=== PATIENT | female | born 1975 | race Two or more races ===

== ENCOUNTER 2022-04-18 10:44 | Inpatient (IN) | payer OTHER ==
[~2022-04-18] VITALS: Ht 167.6 cm; Wt 80.7 kg
--- NOTE | 2022-04-18 11:10 | NUR ---
BIBS c/o RLQ pain since yesterday 07/18 pain scale. AMBULATORY, PLACED ON BED, AAOX4, IN PAIN 07/18.
--- NOTE | 2022-04-18 11:15 | NUR ---
BLOOD DRAWN AND SENT TO LAB
--- NOTE | 2022-04-18 11:20 | NUR ---
PATIENT TAKEN TO CT FOR ABDO AND PELVIS
[2022-04-18 11:26] LABS: BASOPHILS # (AUTO) 0.1 K/uL (0.0-0.2); BASOPHILS % (AUTO) 0.6 % (0.0-2.0); EOSINOPHILS % (AUTO) 0.5 % (0.0-6.0); HEMATOCRIT 40 % (33-45); HEMOGLOBIN 13.5 g/dL (11.5-14.8); LYMPHOCYTES # (AUTO) 1.8 K/uL (0.8-4.8); LYMPHOCYTES % (AUTO) 15.5 % (20.0-44.0); MEAN CORPUSCULAR HGB CONC 34 g/dl (31.0-36.0); MEAN CORPUSCULAR VOLUME 92 fL (82-100); MONOCYTES # (AUTO) 0.8 K/uL (0.1-1.30); MONOCYTES % (AUTO) 6.7 % (2.0-12.0); NEUTROPHILS # (AUTO) 8.8 K/uL (1.8-8.9); NEUTROPHILS % (AUTO) 76.7 % (43.0-81.0); PLATELET COUNT (AUTO) 140 K/uL (150-450); RED BLOOD CELL COUNT(AUTO) 4.32 MIL/uL (4.0-5.2); WHITE BLOOD COUNT (AUTO) 11.5 K/uL (4.3-11.0)
[2022-04-18 11:42] LABS: BILIRUBIN,URINE NEGATIVE (NEGATIVE); COLOR,URINE YELLOW (YELLOW); LEUKOCYTE ESTERASE ,URINE NEGATIVE (NEGATIVE); NITRITE, URINE NEGATIVE (NEGATIVE); PH,URINE 6.5 (5.0-8.0); PROTEIN,URINE NEGATIVE (NEGATIVE); UGLUCOSE NEGATIVE (NEGATIVE); UROBILINOGEN,URINE 0.2 EU/dL (0.2)
[2022-04-18 11:50] LABS: ALANINE AMINOTRANSFERASE 22 U/L (12-78); ALBUMIN 4.4 g/dL (3.4-5.0); ALKALINE PHOSPHATASE 87 U/L (46-116); ASPARTATE AMINOTRANSFERASE 15 U/L (15-37); BILIRUBIN,DIRECT 0.2 mg/dL (0.0-0.2); BILIRUBIN,TOTAL 0.8 mg/dL (0.2-1.0); CALCIUM, SERUM 8.9 mg/dL (8.5-10.1); CARBON DIOXIDE 30 mmol/L (21-32); CHLORIDE 100 mmol/L (98-107); CREATININE 0.8 mg/dL (0.6-1.3); GLUCOSE 129 mg/dL (74-106); LIPASE 78 U/L (73-393); POTASSIUM 4.1 mmol/L (3.5-5.1); SODIUM SERUM 138 mmol/L (136-145); TOTAL PROTEIN, SERUM 8.5 g/dL (6.4-8.2); UREA NITROGEN, BLOOD 8 mg/dL (7-18)
[2022-04-18 11:56] LABS: BACTERIA,URINE None seen /HPF (None Seen); RBC,URINE 0-2 /HPF (0-2); SQUAMOUS EPITHELIAL CELL,UR Few /HPF (None Seen); WBC,URINE 0-2 /HPF (0-3)
[2022-04-18] MEDS ORDERED: ATOR10TA PO (12:35)
[2022-04-18] MEDS ORDERED: LISI-768 PO (12:35)
[2022-04-18] MEDS ORDERED: METF-440 MT (12:35)
[2022-04-18] MEDS ORDERED: PIPERACILLIN /TAZOBACTAM 2.25 G in IV D5W 50 ML IV ONE (13:00)
[2022-04-18] MEDS ORDERED: ZOLPIDEM TARTRATE 5 MG TABLET PO PRN (14:00)
[2022-04-18] MEDS ORDERED: ACETAMINOPHEN 325 MG TABLET PO PRN (14:00)
[2022-04-18] MEDS ORDERED: DEXTROSE 50%-WATER 50 ML DISP.SYRIN IV PRN (14:00)
[2022-04-18] MEDS ORDERED: ONDANSETRON HCL/PF 4 MG/2 ML VIAL IVP PRN (14:00)
[2022-04-18] MEDS ORDERED: *INSULIN REGULAR(HUMULIN R)HUM 100 UNIT/ML VIAL SQ PRN (14:00)
[2022-04-18] MEDS ORDERED: IV NS 0.9% 1,000 ML IV PRN (14:00)
[2022-04-18] MEDS ORDERED: INSULIN REGULAR, HUMAN 100 UNIT/ML 3 ML VIAL SQ PRN (14:00)
[2022-04-18] MEDS ORDERED: MAG HYDROX/AL HYDROX/SIMETH 30 ML UDC PO PRN (14:00)
[2022-04-18] MEDS ORDERED: Z GUARD REMEDY 4 OZ OINT TP PRN (14:00)
[2022-04-18] MEDS ORDERED: MAGNESIUM HYDROXIDE 30 ML UDC PO PRN (14:00)
--- NOTE | 2022-04-18 14:08 | NUR ---
Renetta anthony in [place] - 04/18/22 at 1412 by WILL covid antigen swab done and sent to the lab
--- NOTE | 2022-04-18 15:09 | NUR ---
ROOM 328-2
--- NOTE | 2022-04-18 15:22 | NUR ---
REPORT GIVEN TO NURSE CROUCH FOR DEMETRI
[2022-04-18] MEDS ORDERED: PIPERACILLIN /TAZOBACTAM 3.375 G in IV D5W 100 ML IV SCH (15:30)
[2022-04-18] MEDS ORDERED: HYDROMORPHONE 1 MG/1 ML DISP.SYRIN IV PRN (15:30)
[2022-04-18 16:00] VITALS: BP 130/79
--- NOTE | 2022-04-18 16:05 | NUR ---
ENGINEERING LAB TECHNICIAN NOTES ADMITTED THIS 46 Y/O FEMALE PATIENT FROM ER @1550, TRANSPORTED VIA GURNEY. PATIENT IS AWAKE, ALERT AND ORIENTED X4, VERBALLY RESPONSIVE, NO SIGNS OF ACUTE DISTRESS NOTED. ON ROOM AIR, TOLERATING WELL. NO SOB NOTED, BREATHING EVEN AND UNLABORED. WITH C/O RIGHT ABDOMINAL PAIN. CURRENTLY ON NPO. PATIENT NOTED WITH IV ACCESS ON RIGHT ANTECUBITAL AREA #20G, INTACT AND PATENT, FLUSHES WELL. ORIENTED PATIENT TO ROOM. SAFETY PRECAUTIONS OBSERVED. BED IN LOWEST AND LOCKED POSITION, SIDE RAILS UP X2, CALL LIGHT PLACED WITHIN EASY REACH, WILL CONTINUE TO MONITOR PATIENT.
--- NOTE | 2022-04-18 16:20 | NUR ---
RN NOTES PER CHARGE NURSE GILMAR, PATIENT WILL BE HAVING SURGERY TODAY FOR LAP APPENDECTOMY BY DR. SWIFT @8440.
[2022-04-18] MEDS ORDERED: ANESTHESIA TRAY IN PYXIS 1 EA TRAY MC ONE (16:38)
[2022-04-18] MEDS ORDERED: BUPIVACAINE MPF W/EPI 0.25% 30 ML VIAL ONE (16:39)
--- NOTE | 2022-04-18 16:40 | NUR ---
RN NOTES BROUGHT PATIENT TO O.R. VIA BED FOR LAP APPENDECTOMY.
[2022-04-18] MEDS ORDERED: MIDAZOLAM HCL 2 MG/2ML VIAL ONE (17:00)
[2022-04-18] MEDS ORDERED: HYDROMORPHONE INJ 2 MG/ML DISP.SYRIN ONE (17:00)
[2022-04-18] MEDS ORDERED: ROCURONIUM BROMIDE 50 MG/5 ML ONE (17:00)
[2022-04-18] MEDS ORDERED: PIPERACILLIN /TAZOBACTAM 3.375 G in IV D5W 50 ML IV SCH (18:00)
[2022-04-18] MEDS ORDERED: BACITRACIN ZINC OINT (15 GM) 15 GM TUBE TP ONE (18:18)
--- NOTE | 2022-04-18 19:20 | NUR ---
RN NOTES PATIENT BACK FROM OR, TRANSPORTED VIA GURNEY ACCOMPANIED BY VILMA SOTELO RN. ENDORSED TO NEXT SHIFT.
[2022-04-18] MEDS ORDERED: BUPIVACAINE MPF 0.5% W/EPI INJ 30 ML VIAL ONE (19:23)
--- NOTE | 2022-04-18 19:35 | NUR ---
RN NOTES RECEIVED PATIENT SLEEPING BUT AROUSABLE, S/P LAP APPENDECTOMY, WITH 3 SMALL BANDAGE ON THE ABDOMEN, DRESSING DRY AND INTACT, PATIENT COMPLAINED OF DIFFICULTY OF BREATHING , GIVE O2 AT 2L, PATIENT FEELS BETTER AFTER GIVING O2, CALL LIGHT WITHIN REACH, [id number], WILL CONTINUE TO MONITOR
[2022-04-18 20:00] VITALS: BP 105/63
[2022-04-18] MEDS: IV LR 1000 ML 1,000 ML IV PRN (20:01)
[2022-04-18] MEDS: PIPERACILLIN /TAZOBACTAM 3.375 G in IV D5W 100 ML IV SCH (21:37)
[2022-04-18] MEDS: BLOOD SUGAR DIAGNOSTIC 1 EACH STRIP VI SCH ×2 (21:37→21:39)
[2022-04-18] MEDS: ATORVASTATIN 10 MG TABLET PO SCH (21:38)
--- NOTE | 2022-04-18 22:00 | NUR ---
RN NOTES BLOOD [id number], PT. REFUSED INSULIN, PATIENT STATED SHE'S NOT TAKING INSULIN AND PATIENT REFUSED TO EAT WELL
--- NOTE | 2022-04-18 22:25 | NUR ---
RN NOTES COMPLAINED OF ABDOMINAL PAIN (S/P LAP APPENDECTOMY) NORCO 10/325MG PO GIVEN ORDERED, V/S STABLE
[2022-04-18] MEDS: HYDROCODONE/APAP 10/325MG TABLET PO PRN (22:26)
[2022-04-19 05:00] VITALS: BP 100/61
[2022-04-19] MEDS: IV LR 1000 ML 1,000 ML IV PRN ×2 (05:27→14:09)
[2022-04-19] MEDS: PIPERACILLIN /TAZOBACTAM 3.375 G in IV D5W 100 ML IV SCH ×3 (05:27→21:21)
[2022-04-19 06:27] LABS: BASOPHILS % (AUTO) 0.2 % (0.0-2.0); HEMATOCRIT 35 % (33-45); LYMPHOCYTES % (AUTO) 9.1 % (20.0-44.0); MEAN CORPUSCULAR HGB CONC 35 g/dl (31.0-36.0); MEAN CORPUSCULAR VOLUME 92 fL (82-100); MONOCYTES # (AUTO) 0.3 K/uL (0.1-1.30); MONOCYTES % (AUTO) 3.1 % (2.0-12.0); NEUTROPHILS # (AUTO) 9.3 K/uL (1.8-8.9); NEUTROPHILS % (AUTO) 87.6 % (43.0-81.0); PLATELET COUNT (AUTO) 129 K/uL (150-450); RED BLOOD CELL COUNT(AUTO) 3.75 MIL/uL (4.0-5.2); WHITE BLOOD COUNT (AUTO) 10.6 K/uL (4.3-11.0)
--- NOTE | 2022-04-19 06:45 | NUR ---
RN NOTES AWAKE, PAIN IS YOLERABLE AT THIS TIME, NO SOB, CALL LIGHT WITHIN REACH, MORNING CARE RENDERED, [id number], PT. NEEDS ATTENDED
[2022-04-19 07:29] LABS: CALCIUM, SERUM 8.8 mg/dL (8.5-10.1); CREATININE 0.7 mg/dL (0.6-1.3); MAGNESIUM 2.1 mg/dL (1.8-2.4); PHOSPHORUS 5.7 mg/dL (2.5-4.9); POTASSIUM 4.9 mmol/L (3.5-5.1)
[2022-04-19] MEDS: BLOOD SUGAR DIAGNOSTIC 1 EACH STRIP VI SCH ×4 (07:30→21:21)
--- NOTE | 2022-04-19 07:30 | NUR ---
MS RN NOTES RECEIVED PATIENT AWAKE IN BED. PATIENT IS ALERT AND ORIENTED TIMES 4. NO PAIN NOTED. NO SOB NOTED. NO DISTRESS NOTED. ABLE TO AMBULATE . ABLE TO MAKE NEEDS KNOWN. ALL SAFETY MEASURES IN PLACE. BED LOCKED IN THE LOWEST POSITION. CALL LIGHT AND TABLE IN EASY REACH. WILL CONTINUE TO MONITOR.
[2022-04-19 08:00] VITALS: BP 107/63
[2022-04-19] MEDS ORDERED: PANTOPRAZOLE 40 MG VIAL IV SCH (09:00)
[2022-04-19] MEDS: LISINOPRIL (5MG) 5 MG TABLET PO SCH (09:14)
[2022-04-19] MEDS: METFORMIN 500 MG TABLET PO SCH ×2 (09:15→17:11)
[2022-04-19] MEDS: HYDROCODONE/APAP 10/325MG TABLET PO PRN ×2 (12:12→20:25)
[2022-04-19 16:00] VITALS: BP 100/62
--- NOTE | 2022-04-19 18:58 | NUR ---
MS RN NOTES PATIENT AWAKE IN BED. PATIENT IS ALERT AND ORIENTED TIMES 4. NO PAIN NOTED. NO SOB NOTED. NO DISTRESS NOTED. ABLE TO AMBULATE . ABLE TO MAKE NEEDS KNOWN. ALL SAFETY MEASURES IN PLACE. ALL DUE MEDS GIVEN ORDERED.BED LOCKED IN THE LOWEST POSITION. CALL LIGHT AND TABLE IN EASY REACH. WILL ENDORSE FOR DEMETRI..
--- NOTE | 2022-04-19 19:30 | NUR ---
RN OPENING NOTE PATIENT IS A/O X 4 ABLE TO MAKE NEEDS KNOWN, PATIENT AMBULATORY TO BATHROOM STEADILY. PATIENT IS ON RA, TOLERATING WELL. PATIENT S/P LAP APPENDECTOMY 04/18/22, PATIENT HAS THREE DRESSINGS ON HER ABDOMEN. PATIENT COMPLAINS OF 7/10 PAIN ON HER ABDOMEN. WILL MANAGE PAIN APPROPRIATELY. SAFETY MEASURES IN PLACE: BED LOCKED AND IN LOWEST POSITION, CALL LIGHT WITHIN REACH, SIDE RAILS UP. WILL MONITOR PATIENT CLOSELY.
[2022-04-19 20:22] VITALS: BP 102/58
--- NOTE | 2022-04-19 20:25 | NUR ---
RN NOTE PATIENT GIVEN NORCO 10/325 FOR HER PAIN AND ICE PACK TO APPLY TO ABD SX SITE TO RELIEVE PAIN.
[2022-04-19] MEDS: ATORVASTATIN 10 MG TABLET PO SCH (21:21)
--- NOTE | 2022-04-19 21:30 | NUR ---
RN NOTE BS 126 MG/DL, NO COVERAGE GIVEN. WILL MONITOR PATIENT CLOSELY FOR HYPO/HYPERGLYCEMIA.
[2022-04-20] MEDS: IV LR 1000 ML 1,000 ML IV PRN (01:15)
[2022-04-20] MEDS: PIPERACILLIN /TAZOBACTAM 3.375 G in IV D5W 100 ML IV SCH ×2 (06:05→14:14)
--- NOTE | 2022-04-20 07:28 | NUR ---
RN OPENING NOTES RECEIVED PATIENT IN BED, AWAKE, A/O X4. ON ROOM AIR, TOLERATING WELL, NO SOB NOTED, BREATHING EVEN AND UNLABORED. NO SIGNS OF ACUTE RESPIRATORY DISTRESS NOTED. STILL WITH C/O OF ABDOMINAL PAIN BUT TOLERABLE WITH COLD COMPRESS. WITH IV ACCESS ON RIGHT ANTECUBITAL #20G, INTACT AND PATENT WITH LR @150 ML/HR RUNNING. SAFETY MEASURE MAINTAINED. BED IN LOWEST AND LOCKED POSITION, SIDE RAILS UP X2, CALL LIGHT PLACED WITHIN EASY REACH. WILL CONTINUE TO MONITOR PATIENT.
--- NOTE | 2022-04-20 07:29 | NUR ---
RN CLOSING NOTE PATIENT IS A/O X 4 ABLE TO MAKE NEEDS KNOWN, PATIENT CURRENTLY SITTING ON THE CHAIR AT BEDSIDE, STATES IT IS MORE COMFORTABLE FOR HER. PATIENT STILL HAS A COLD PACK ON ABDOMEN AND HOT PACK ON HER NECK FOR STIFF NECK. PATIENT IS ON RA, TOLERATING WELL. PATIENT S/P LAP APPENDECTOMY 04/18/22, PATIENT HAS THREE DRESSINGS ON HER ABDOMEN. SAFETY MEASURES IN PLACE: BED LOCKED AND IN LOWEST POSITION, CALL LIGHT WITHIN REACH, SIDE RAILS UP. ENDORSED TO DAY SHIFT NURSE FOR DEMETRI.
[2022-04-20] MEDS: BLOOD SUGAR DIAGNOSTIC 1 EACH STRIP VI SCH ×2 (07:39→11:47)
[2022-04-20 08:36] VITALS: BP 124/73
[2022-04-20] MEDS: LISINOPRIL (5MG) 5 MG TABLET PO SCH (08:36)
[2022-04-20] MEDS: METFORMIN 500 MG TABLET PO SCH (08:36)
[2022-04-20] MEDS: HYDROCODONE/APAP 10/325MG TABLET PO PRN ×2 (08:36→13:45)
[2022-04-20] MEDS ORDERED: PANTOPRAZOLE 40 MG TABLET.DR PO SCH (09:00)
[2022-04-20 09:13] LABS: BASOPHILS % (AUTO) 0.4 % (0.0-2.0); EOSINOPHILS % (AUTO) 0.7 % (0.0-6.0); HEMATOCRIT 34 % (33-45); HEMOGLOBIN 11.6 g/dL (11.5-14.8); LYMPHOCYTES # (AUTO) 2.4 K/uL (0.8-4.8); MEAN CORPUSCULAR HGB CONC 34 g/dl (31.0-36.0); MEAN CORPUSCULAR VOLUME 93 fL (82-100); MONOCYTES # (AUTO) 0.6 K/uL (0.1-1.30); MONOCYTES % (AUTO) 6.6 % (2.0-12.0); NEUTROPHILS # (AUTO) 5.4 K/uL (1.8-8.9); NEUTROPHILS % (AUTO) 64.3 % (43.0-81.0); PLATELET COUNT (AUTO) 136 K/uL (150-450); RED BLOOD CELL COUNT(AUTO) 3.66 MIL/uL (4.0-5.2); WHITE BLOOD COUNT (AUTO) 8.4 K/uL (4.3-11.0)
[2022-04-20 12:22] LABS: CALCIUM, SERUM 8.5 mg/dL (8.5-10.1); POTASSIUM 3.5 mmol/L (3.5-5.1)
[2022-04-20 12:23] LABS: CREATININE 0.8 mg/dL (0.6-1.3)
[2022-04-20] MEDS ORDERED: AMOX-430 PO (12:31)
[2022-04-20] MEDS ORDERED: TRAM50TA2 PO (12:31)
[2022-04-20] MEDS ORDERED: METF-440 PO (12:31)
[2022-04-20] MEDS ORDERED: ACET325T53 PO (12:31)
--- NOTE | 2022-04-20 15:45 | NUR ---
ABSENCE MANAGEMENT CONSULTANT NOTES PATIENT DISCHARGED TO HOME IN STABLE CONDITION. ALERT AND ORIENTED X4, ABLE TO MAKE NEEDS KNOWN. VITAL SIGNS STABLE. ALL BELONGINGS ACCOUNTED FOR. FORM SIGNED BY PATIENT. IV ACCESS ON RIGHT AC REMOVED, NO BLEEDING NOTED. PRESSURE DRESSING APPLIED. ARM NAMEBAND REMOVED. EXITCARE FOLDER GIVEN TO PATIENT, HEALTH TEACHINGS AND DISCHARGE INSTRUCTIONS PROVIDED WITH VERBALIZATION OF UNDERSTANDING. PATIENT LEFT UNIT @ 1540, ACCOMPANIED TO THE LOBBY VIA W/C, PICKED UP BY SISTER IN LAW RAISA. CN AWARE OF DISCHARGE.
== END 2022-04-20 15:45 | disposition home or self-care (01) | DRG 340 ==
LOC: ER 10:52 → MED 15:20
PROVIDERS: ADMIT Nurse Practitioner Acute Care; ATTEND Nurse Practitioner Acute Care
PROC: 0DTJ4ZZ Resection of Appendix, Percutaneous Endoscopic Approach (ICD-10-PCS; principal; 2022-04-18)
DX: K35.32 Acute appendicitis with perforation, localized peritonitis, and gangrene, without abscess (principal); K66.0 Peritoneal adhesions (postprocedural) (postinfection); N30.90 Cystitis, unspecified without hematuria; E11.9 Type 2 diabetes mellitus without complications; Z90.12 Acquired absence of left breast and nipple; Z90.710 Acquired absence of both cervix and uterus; Z79.84 Long term (current) use of oral hypoglycemic drugs; Z79.899 Other long term (current) drug therapy; E78.5 Hyperlipidemia, unspecified; I10 Essential (primary) hypertension; Z85.3 Personal history of malignant neoplasm of breast
CPT/HCPCS: 36415; 80048-TC; 80076-TC; 81001; 82962-TC; 83690-TC; 83735-TC; 84100-TC; 84484-TC; 84703-TC; 85025-TC; 85730-TC; 87081-TC; 88304-TC; 94799-TC; C9113; C9803; G0378; J0330; J0690; J1100; J1170; J1815; J1885; J2250; J2405; J2543; J2704; J3490; J7030; J7050; J7060; J7120